=== PATIENT | male | born 1990 | race Caucasian/White ===

== ENCOUNTER 2020-12-18 20:55 | Emergency (ER) | payer BC ==
[~2020-12-18] VITALS: Ht 182.9 cm; Wt 79.5 kg
[2020-12-18] MEDS ORDERED: MIDAZOLAM HCL PF 5 MG/5 ML VIAL. ONE (23:57)
[2020-12-19] VITALS: BP 128/84
[2020-12-19] MEDS ORDERED: MIDAZOLAM HCL PF 5 MG/5 ML VIAL. IM ONE
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
== END 2020-12-19 00:11 | disposition home or self-care (01) ==
LOC: ER 20:55
DX: F41.0 Panic disorder [episodic paroxysmal anxiety] (principal)
CPT/HCPCS: 96372; 99284; J2250